=== PATIENT | male | born 1940 | race Caucasian/White ===

== ENCOUNTER → 2024-09-04 06:50 | Outpatient (CLI) | payer MEDICARE, BC, SELFPAY ==
--- NOTE | 2024-09-04 06:54 | DI.US.S_ITS ---
PROCEDURE: US SOFT TISSUE ABDOMEN INDICATIONS: BACK MASS TECHNIQUE: Real-time focused scanning was performed of the left back, with image documentation. COMPARISON: None. FINDINGS: No abnormalities identified within the area of concern in the left back. IMPRESSION: No abnormalities are identified. Dictated by: Alfa Zaragoza M.D. on 09/04/2024 at 11:47 Approved by: Alfa Zaragoza M.D. on 09/04/2024 at 11:47
== END ==
LOC: US 06:52
PROVIDERS: PCP Physician Assistant Medical; Referring Provider Physician Assistant; Visit Provider Physician Assistant
DX: R22.2 Localized swelling, mass and lump, trunk (principal); M25.512 Pain in left shoulder
CPT/HCPCS: 76705

== ENCOUNTER → 2025-01-02 08:32 | Outpatient (CLI) | payer MEDICARE, BC, SELFPAY ==
[2025-01-02 09:33] LABS: Add Manual Diff / Slide Review NO; Hematocrit 43.4 % (41-53); Hemoglobin 14.8 g/dL (13.5-17.5); Lymphocytes Absolute Auto 900 /uL (1100-4500); Mean Corpuscular HGB Conc 34.1 % (30-36); Mean Corpuscular Hemoglobin 32.1 PG (26-34); Mean Corpuscular Volume 94.3 fL (80-100); Platelet Count 217 X10^3/uL (150-400)
[2025-01-02 10:35] LABS: Blood Urea Nitrogen 28 mg/dL (9-20); Calcium 9.1 mg/dL (8.4-10.2); Carbon Dioxide 25 mmol/L (22-32); Chloride 106 mmol/L (98-107); Estimated Glomerular Filt Rate > 60 mL/min (>60); Glucose 109 mg/dL (70-99); HEMOLYSIS 16 (0-50); Potassium 4.7 mmol/L (3.4-5.1); Sodium 138 mmol/L (137-145)
== END ==
PROVIDERS: PCP Physician Assistant Medical; Referring Provider Physician Assistant Medical; Visit Provider Internal Medicine Cardiovascular Disease
DX: I48.0 Paroxysmal atrial fibrillation (principal)
CPT/HCPCS: 36415; 80048; 85025